=== PATIENT | female | born 1970 | race Caucasian/White ===

== ENCOUNTER 2018-09-14 18:36 | Emergency (ER) | payer SELFPAY ==
[~2018-09-14] VITALS: Ht 157.5 cm; Wt 83.9 kg
[2018-09-14 19:37] VITALS: BP 110/72
--- NOTE | 2018-09-14 20:45 | NUR ---
pt amb to ch e
--- NOTE | 2018-09-14 21:00 | NUR ---
C/O L EYE BURNING PAIN/SWELLING, X1 MONTH. +REDNESS, +ITCHINESS. DENIES TRAUMA. WAS GIVEN RX "EYE CREAM" 1 MONTH AGO WITH IMPROVEMENT BUT L EYE SWELLING CAME BACK THIS WEEK. DENIES VISION CHANGES.
[2018-09-14 21:26] VITALS: BP 120/72
--- NOTE | 2018-09-14 21:26 | NUR ---
Patient discharged with v/s stable. Written and verbal after care instructions given and explained. Patient alert, oriented and verbalized understanding of instructions. Ambulatory with steady gait. All questions addressed prior to discharge. ID band removed. Patient advised to follow up with PMD. Rx of TOBRADEX given. Patient educated on indication of medication including possible reaction and side effects. Opportunity to ask questions provided and answered.
== END 2018-09-14 21:26 | disposition home or self-care (01) ==
LOC: MED 18:36
DX: H01.00B Unspecified blepharitis left eye, upper and lower eyelids (principal)
CPT/HCPCS: 99283

== ENCOUNTER 2019-08-31 14:36 | Emergency (ER) | payer SELFPAY ==
[~2019-08-31] VITALS: Ht 154.9 cm; Wt 86.6 kg
[2019-08-31 14:45] VITALS: BP 123/68
[2019-08-31] MEDS ORDERED: KETOROLAC 60 MG/2 ML VIAL IM ONE (15:25)
--- NOTE | 2019-08-31 15:30 | NUR ---
49 Y/O FEMALE PRESENT WITH RIGHT ARM PAIN X1 WEEK. PT REPORTS LIFTING HEAVY THINGS AROUND HOUSE AND ARM HAS BEEN GIVING HER PAIN FOR THE PAST WEEK. ROM IN TACT IN BUE, CMS+. NO OBIVOUS DEFORMITY NOTED. SKIN INTACT/ DRY/ COOL. RESP EVEN AND UNLABORED. LUNG SOUNDS CLEAR BILAT LOBES. PMH: ABENA HEATON
--- NOTE | 2019-08-31 16:20 | NUR ---
PT IN BED RESTING ALL NEED MET
[2019-08-31] MEDS ORDERED: IBUPROFEN 600 MG TAB PO ONE (16:30)
== END 2019-08-31 17:10 | disposition home or self-care (01) ==
LOC: MED 14:36
DX: M19.011 Primary osteoarthritis, right shoulder (principal)
CPT/HCPCS: 73030; 99283; J1885; Q0092